=== PATIENT | male | born 1945 | race Caucasian/White ===

== ENCOUNTER → 2016-11-13 | Outpatient (CLI) | payer MEDICARE ==
[2016-11-13 09:48] LABS: Basophils # (A) 0.1 k/uL (0-0.2); Basophils % (A) 1 %; CH 34.6; Eosinophils # (A) 0.3 k/uL (0-0.7); Eosinophils % (A) 5 %; HCT 43.2 % (39.0-53.0); HDW 2.45; HGB 14.5 gm/dL (13.0-17.5); Luc # (Auto) 0.15; Luc % (Auto) 3; Lymphocytes # (A) 1.4 k/uL (1.0-4.8); Lymphocytes % (A) 24 %; MCH 34.2 pg (25.0-35.0); MCHC 33.5 g/dL (31.0-37.0); MCV 102.3 fL (80.0-100.0); Macrocytosis Slight; Mean Platelet Volume 6.7; Monocytes # (A) 0.5 k/uL (0-1.0); Monocytes % (A) 8 %; Neutrophils # (A) 3.3 k/uL (1.3-7.7); Neutrophils % (A) 59 %; RBC 4.22 m/uL (4.30-5.90); RDW 12.6 % (11.5-15.5); WBC 5.6 k/uL (3.8-10.6); WBC (Perox) 5.45
[2016-11-13 12:08] LABS: ALT 38 U/L (21-72); AST 40 U/L (17-59); Alkaline Phosphatase 128 U/L (38-126); Anion Gap 10 mmol/L; Blood Urea Nitrogen 18 mg/dL (9-20); Calcium 9.1 mg/dL (8.4-10.2); Carbon Dioxide 24 mmol/L (22-30); Chloride 109 mmol/L (98-107); Cholesterol 122 mg/dL (<200); Glucose 89 mg/dL (74-99); HDL Cholesterol 50 mg/dL (40-60); Non-African American GFR(MDRD) >60 (>60 ml/min/1.73 sqM); Potassium 4.5 mmol/L (3.5-5.1); Sodium 143 mmol/L (137-145); Total Bilirubin 1.2 mg/dL (0.2-1.3); Total Protein 6.5 g/dL (6.3-8.2); Triglycerides 80 mg/dL (<150)
== END ==
LOC: LABWHC1 07:26
PROVIDERS: ATTEND Internal Medicine
DX: E78.5 Hyperlipidemia, unspecified (principal); I25.10 Atherosclerotic heart disease of native coronary artery without angina pectoris; I51.4 Myocarditis, unspecified; E87.8 Other disorders of electrolyte and fluid balance, not elsewhere classified; E55.9 Vitamin D deficiency, unspecified; Z79.899 Other long term (current) drug therapy; Z12.5 Encounter for screening for malignant neoplasm of prostate
CPT/HCPCS: 84439; 80061; 80053; 83735; 84443; 85025; 82306; 36415; G0103

== ENCOUNTER → 2017-08-04 | Outpatient (CLI) | payer MEDICARE ==
--- NOTE | 2017-08-05 10:54 | ECHOF ---
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 This was a technically good study. The left ventricular size is normal. There is mild concentric left ventricular hypertrophy. Overa ll left ventricular systolic function is low-normal with, an EF between 50 - 55 %. The right ventricle is normal in size. Normal LA size by volume 22+/-6 ml/m2. The right atrial size is normal. The aortic valve is trileaflet, and appears structurally normal. No aortic stenosis or regurgitation. The mitral valve leaflets are mildly thickened. Mild mitral regurgitation is present. Mild tricuspid regurgitation present. There is no evidence of pulmonary hypertension. The right v entricular systolic pressure, as measured by Doppler, is 31.19mmHg. Trace/mild (physiologic) pulmonic regurgitation. The aortic root size is normal. There is no pericardial effusion. CONCLUSIONS -------- 1. Sinus rhythm. 2. This was a technically good study. 3. The left ventricular size is normal. 4. There is mild concentric left ventricular hypertrophy. 5. Overall left ventricular systolic function is low-normal with, an EF between 50 - 55 %. 6. Normal LA size by volume 22+/-6 ml/m2. 7. The aortic valve is trileaflet, and appears structurally normal. No aortic stenosis or regurgitati on. 8. The mitral valve leaflets are mildly thickened. 9. Mild mitral regurgitation is present. 10. Mild tricuspid regurgitation present. 11. There is no evidence of pulmonary hypertension. 12. Trace/mild (physiologic) pulmonic regurgitation. 13. The aortic root size is normal. 14. There is no pericardial effusion. ANIMAL ASSISTED THERAPIST: Eloisa Caldera RDCS
== END | disposition home or self-care (01) ==
LOC: RADECHMAIN 13:15
PROVIDERS: ATTEND Internal Medicine Cardiovascular Disease
DX: I08.1 Rheumatic disorders of both mitral and tricuspid valves (principal)
CPT/HCPCS: 93306

== ENCOUNTER → 2017-08-05 | Outpatient (CLI) | payer MEDICARE ==
[2017-08-05 08:33] LABS: Cholesterol 125 mg/dL (<200); HDL Cholesterol 45 mg/dL (40-60); LDL Cholesterol,Calculated 64 mg/dL (0-99); Triglycerides 79 mg/dL (<150)
== END | disposition home or self-care (01) ==
LOC: LABWHC1 07:43
PROVIDERS: ATTEND Internal Medicine
DX: B33.24 Viral cardiomyopathy (principal)
CPT/HCPCS: 36415; 80061

== ENCOUNTER → 2018-01-27 | Outpatient (CLI) | payer MEDICARE ==
[2018-01-27 08:53] LABS: Basophils % (A) 1 %; Eosinophils # (A) 0.4 k/uL (0-0.7); Eosinophils % (A) 9 %; HCT 41.2 % (39.0-53.0); HGB 13.9 gm/dL (13.0-17.5); Lymphocytes # (A) 1.3 k/uL (1.0-4.8); Lymphocytes % (A) 31 %; MCH 32.8 pg (25.0-35.0); MCHC 33.7 g/dL (31.0-37.0); MCV 97.1 fL (80.0-100.0); Mean Platelet Volume 6.7; Monocytes # (A) 0.3 k/uL (0-1.0); Monocytes % (A) 8 %; Neutrophils # (A) 1.9 k/uL (1.3-7.7); Neutrophils % (A) 47 %; Platelet Count 235 k/uL (150-450); RBC 4.24 m/uL (4.30-5.90); RDW 12.4 % (11.5-15.5)
[2018-01-27 12:55] LABS: Albumin 3.6 g/dL (3.5-5.0); Potassium 4.8 mmol/L (3.5-5.1); Total Bilirubin 0.9 mg/dL (0.2-1.3); Total Protein 6.4 g/dL (6.3-8.2)
[2018-01-27 13:11] LABS: T4, Free (Free Thyroxine) 1.07 ng/dL (0.78-2.19)
[2018-01-27 13:25] LABS: PSA Annual Screen 1.85 ng/mL (0.00-4.00)
== END | disposition home or self-care (01) ==
LOC: LABWHC1 07:13
PROVIDERS: ATTEND Internal Medicine
DX: Z00.00 Encounter for general adult medical examination without abnormal findings (principal); E78.5 Hyperlipidemia, unspecified; I25.10 Atherosclerotic heart disease of native coronary artery without angina pectoris; E05.90 Thyrotoxicosis, unspecified without thyrotoxic crisis or storm; E55.9 Vitamin D deficiency, unspecified; Z12.5 Encounter for screening for malignant neoplasm of prostate; Z79.899 Other long term (current) drug therapy
CPT/HCPCS: 84439; 80061; 80053; 84443; 85025; 82306; 36415; G0103

== ENCOUNTER → 2018-06-04 | Outpatient (CLI) | payer MEDICARE ==
[2018-06-04 16:01] LABS: T4, Free (Free Thyroxine) 1.2 ng/dL (0.80-1.80)
== END ==
LOC: LABWHC1 08:31
PROVIDERS: ATTEND Internal Medicine
DX: E03.9 Hypothyroidism, unspecified (principal)
CPT/HCPCS: 36415; 84439; 84443

== ENCOUNTER → 2018-10-27 | Outpatient (CLI) | payer MEDICARE ==
[2018-10-27 16:26] LABS: Basophils % (A) 1 %; Eosinophils # (A) 0.3 k/uL (0-0.7); Eosinophils % (A) 7 %; HCT 42.6 % (39.0-53.0); HGB 14.2 gm/dL (13.0-17.5); Lymphocytes # (A) 1.6 k/uL (1.0-4.8); Lymphocytes % (A) 32 %; MCH 33.7 pg (25.0-35.0); MCHC 33.4 g/dL (31.0-37.0); MCV 100.9 fL (80.0-100.0); Mean Platelet Volume 6.3; Monocytes # (A) 0.4 k/uL (0-1.0); Monocytes % (A) 8 %; Neutrophils # (A) 2.6 k/uL (1.3-7.7); Neutrophils % (A) 50 %; Platelet Count 233 k/uL (150-450); RBC 4.22 m/uL (4.30-5.90); RDW 12.7 % (11.5-15.5); WBC 5.2 k/uL (3.8-10.6)
[2018-10-28 00:05] LABS: Anion Gap 9.1 mmol/L (4.00-12.00); Calcium 8.9 mg/dL (8.7-10.3); Carbon Dioxide 23.9 mmol/L (21.6-31.8)
== END | disposition home or self-care (01) ==
LOC: LABWHC1 15:57
PROVIDERS: ATTEND Internal Medicine Cardiovascular Disease
DX: I25.110 Atherosclerotic heart disease of native coronary artery with unstable angina pectoris (principal)
CPT/HCPCS: 36415; 80048; 85025

== ENCOUNTER → 2019-02-08 | Outpatient (CLI) | payer MEDICARE ==
[2019-02-08 07:42] LABS: Basophils % (A) 1 %; Eosinophils # (A) 0.3 k/uL (0-0.7); Eosinophils % (A) 6 %; HCT 42.5 % (39.0-53.0); HGB 14.3 gm/dL (13.0-17.5); Lymphocytes # (A) 1.2 k/uL (1.0-4.8); Lymphocytes % (A) 28 %; MCH 33.8 pg (25.0-35.0); MCHC 33.7 g/dL (31.0-37.0); Mean Platelet Volume 6.3; Monocytes # (A) 0.4 k/uL (0-1.0); Monocytes % (A) 10 %; Neutrophils # (A) 2.1 k/uL (1.3-7.7); Neutrophils % (A) 52 %; Platelet Count 236 k/uL (150-450); RBC 4.25 m/uL (4.30-5.90); RDW 12.3 % (11.5-15.5); WBC 4.1 k/uL (3.8-10.6)
[2019-02-08 14:01] LABS: T4, Free (Free Thyroxine) 0.9 ng/dL (0.80-1.80)
[2019-02-08 14:05] LABS: African American GFR (CKD) 77.9 (60.0-200.0); Albumin 3.9 g/dL (3.80-4.90); Albumin/Globulin Ratio 2.05 (1.60-3.17); Anion Gap 7.6 mmol/L (4.00-12.00); BUN/Creat Ratio 14.55 Ratio (12.00-20.00); Calcium 8.5 mg/dL (8.7-10.3); Carbon Dioxide 24.4 mmol/L (21.6-31.8); Chol/HDL Ratio 2.29; Globulin 1.9 g/dL (1.6-3.3); LDL Cholesterol,Calculated 53.4 mg/dL (0.0-131.0); Non-African American GFR(CKD) 67.2 (60.0-200.0); Potassium 4.7 mmol/L (3.5-5.5); Total Bilirubin 0.6 mg/dL (0.2-1.2); Total Protein 5.8 g/dL (6.2-8.2); VLDL Calculation 13.6 mg/dL (5.00-40.00)
== END | disposition home or self-care (01) ==
LOC: LABWHC1 06:51
PROVIDERS: ATTEND Internal Medicine
DX: Z00.00 Encounter for general adult medical examination without abnormal findings (principal); I25.10 Atherosclerotic heart disease of native coronary artery without angina pectoris; E78.5 Hyperlipidemia, unspecified; E03.9 Hypothyroidism, unspecified; Z12.5 Encounter for screening for malignant neoplasm of prostate; Z79.899 Other long term (current) drug therapy
CPT/HCPCS: 84439; 80061; 80053; 85025; 36415; G0103

== ENCOUNTER → 2019-03-11 | Outpatient (CLI) | payer MEDICARE ==
[2019-03-11 11:31] LABS: Protein, Total 6.1 g/dL (6.2-8.2)
[2019-03-11 11:34] LABS: Albumin/Globulin Ratio 1.9 (1.60-3.17); Bilirubin, Conjugated 0.2 mg/dL (0.20-0.40); Bilirubin,Unconjugated 0.5 mg/dL; Globulin 2.1 g/dL (1.6-3.3); Total Bilirubin 0.7 mg/dL (0.2-1.2); Total Protein 6.1 g/dL (6.2-8.2)
[2019-03-11 11:39] LABS: Vitamin D 25 Hydroxy 36.4 ng/mL (30.0-100.0)
[2019-03-12 11:27] LABS: Albumin 3.56 g/dL (3.80-4.90)
== END | disposition home or self-care (01) ==
LOC: LABWHC1 07:17
PROVIDERS: ATTEND Internal Medicine
DX: E55.9 Vitamin D deficiency, unspecified (principal); R94.5 Abnormal results of liver function studies
CPT/HCPCS: 36415; 80076; 82306; 84165

== ENCOUNTER → 2019-04-02 | Outpatient (CLI) | payer MEDICARE ==
--- NOTE | 2019-04-02 10:58 | US ---
EXAMINATION TYPE: US abdomen limited DATE OF EXAM: 04/02/2019 COMPARISON: NONE CLINICAL HISTORY: R74.8 Elevated Liver Enzymes. EXAM MEASUREMENTS: Liver Length: 10.5 cm Gallbladder Wall: 0.2 cm CBD: 0.4 cm Right Kidney: 9.2 x 4.9 x 5.4 cm Pancreas: not visualized due to midline bowel gas Liver: cyst measures 2.1 x 1.7 x 1.9 cm Gallbladder: No stones seen Evidence for sonographic Palmer's sign: No CBD: wnl Right Kidney: No hydronephrosis or masses seen IMPRESSION: 1. Hepatic cyst appears simple and benign measuring 2.1 cm. Remainder of the hepatic echotexture appe ars homogeneous despite abnormal liver function tests. 2. No sonographic evidence of cholelithiasis nor acute cholecystitis.
== END | disposition home or self-care (01) ==
LOC: RADUSWWP 07:28
PROVIDERS: ATTEND Internal Medicine
DX: K76.89 Other specified diseases of liver (principal)
CPT/HCPCS: 76705

== ENCOUNTER → 2020-02-11 | Outpatient (CLI) | payer MEDICARE ==
[2020-02-11 09:12] LABS: Basophils % (A) 1 %; Eosinophils # (A) 0.3 k/uL (0-0.7); Eosinophils % (A) 7 %; HCT 44.8 % (39.0-53.0); HGB 14.7 gm/dL (13.0-17.5); Lymphocytes # (A) 1.2 k/uL (1.0-4.8); Lymphocytes % (A) 27 %; MCH 33.4 pg (25.0-35.0); MCHC 32.9 g/dL (31.0-37.0); MCV 101.6 fL (80.0-100.0); Monocytes # (A) 0.3 k/uL (0-1.0); Monocytes % (A) 7 %; Neutrophils # (A) 2.5 k/uL (1.3-7.7); Neutrophils % (A) 55 %; Platelet Count 232 k/uL (150-450); RBC 4.41 m/uL (4.30-5.90); RDW 12.5 % (11.5-15.5); WBC 4.6 k/uL (3.8-10.6)
[2020-02-11 17:30] LABS: African American GFR (CKD) 77.3 (60.0-200.0); Albumin/Globulin Ratio 1.74 (1.60-3.17); Anion Gap 6.4 mmol/L (4.00-12.00); BUN/Creat Ratio 17.27 Ratio (12.00-20.00); Calcium 9.3 mg/dL (8.7-10.3); Carbon Dioxide 27.6 mmol/L (21.6-31.8); Chol/HDL Ratio 2.65; Globulin 2.3 g/dL (1.6-3.3); LDL Cholesterol,Calculated 57.6 mg/dL (0.0-131.0); Non-African American GFR(CKD) 66.7 (60.0-200.0); Potassium 4.5 mmol/L (3.5-5.5); Total Bilirubin 0.9 mg/dL (0.2-1.2); Total Protein 6.3 g/dL (6.2-8.2); VLDL Calculation 18.4 mg/dL (5.00-40.00)
[2020-02-11 17:38] LABS: T4, Free (Free Thyroxine) 1.1 ng/dL (0.80-1.80)
== END | disposition home or self-care (01) ==
LOC: LABWHC1 07:19
PROVIDERS: ATTEND Internal Medicine
DX: Z00.00 Encounter for general adult medical examination without abnormal findings (principal); E55.9 Vitamin D deficiency, unspecified; E78.5 Hyperlipidemia, unspecified; I25.10 Atherosclerotic heart disease of native coronary artery without angina pectoris; Z12.5 Encounter for screening for malignant neoplasm of prostate; Z79.899 Other long term (current) drug therapy
CPT/HCPCS: 84439; 80061; 80053; 82550; 84443; 85025; 82306; 36415; G0103

== ENCOUNTER → 2021-02-14 | Outpatient (CLI) | payer MEDICARE ==
[2021-02-14 12:04] LABS: Basophils # (A) 0.04 X 10*3/uL (0.00-0.10); Basophils % (A) 0.9 %; Eosinophils # (A) 0.31 X 10*3/uL (0.04-0.35); Eosinophils % (A) 7.3 %; HCT 40.7 % (39.6-50.0); HGB 13.9 g/dL (13.0-17.0); Lymphocytes # (A) 1.17 X 10*3/uL (0.90-5.00); Lymphocytes % (A) 27.5 %; MCH 34.3 pg (27.0-32.0); MCHC 34.2 g/dL (32.0-37.0); MCV 100.5 fL (80.0-97.0); Mean Platelet Volume 10.2 fL (9.5-12.2); Monocytes # (A) 0.42 X 10*3/uL (0.20-1.00); Monocytes % (A) 9.9 %; Neutrophils % (A) 54.2 %; Platelet Count 218 X 10*3/uL (140-440); RBC 4.05 X 10*6/uL (4.40-5.60); RDW 12.4 % (11.5-14.5); WBC 4.25 X 10*3/uL (4.50-10.00)
[2021-02-14 13:56] LABS: African American GFR (CKD) 69.1 (60.0-200.0); Albumin 3.9 g/dL (3.80-4.90); Albumin/Globulin Ratio 1.63 (1.60-3.17); Anion Gap 5.5 mmol/L (4.00-12.00); BUN/Creat Ratio 16.67 Ratio (12.00-20.00); Calcium 8.9 mg/dL (8.7-10.3); Carbon Dioxide 25.5 mmol/L (21.6-31.8); Chol/HDL Ratio 2.66; Globulin 2.4 g/dL (1.6-3.3); LDL Cholesterol,Calculated 57.6 mg/dL (0.0-131.0); Non-African American GFR(CKD) 59.6 (60.0-200.0); Potassium 4.4 mmol/L (3.5-5.5); Total Protein 6.3 g/dL (6.2-8.2); VLDL Calculation 10.4 mg/dL (5.00-40.00)
[2021-02-14 14:06] LABS: T4, Free (Free Thyroxine) 1.2 ng/dL (0.80-1.80)
[2021-02-14 14:08] LABS: PSA Annual Screen 1.9 ng/mL (0.0-4.0)
[2021-02-14 18:24] LABS: Hepatitis B Surface AB- Quant <3.5 mIU/mL; Hepatitis B Surface Antibody Non-Reactive (Non-Reactive); Hepatitis B Surface Antigen Non-Reactive (Non-Reactive); Hepatitis C IgG Antibody Non-Reactive (Non-Reactive)
== END | disposition home or self-care (01) ==
LOC: LABWHC1 07:17
PROVIDERS: ATTEND Internal Medicine
DX: Z12.5 Encounter for screening for malignant neoplasm of prostate (principal); E55.9 Vitamin D deficiency, unspecified; E03.9 Hypothyroidism, unspecified; E78.5 Hyperlipidemia, unspecified; R94.5 Abnormal results of liver function studies; I25.10 Atherosclerotic heart disease of native coronary artery without angina pectoris; Z79.899 Other long term (current) drug therapy
CPT/HCPCS: 86803; 84439; 80061; 80053; 82550; 84443; 85025; 86706; 87340; 82306; 86704; 36415; G0103

== ENCOUNTER → 2022-04-15 | Outpatient (CLI) | payer MEDICARE ==
[2022-04-15 11:48] LABS: T4, Free (Free Thyroxine) 1.35 ng/dL (0.800-1.800)
== END | disposition home or self-care (01) ==
LOC: LABWHC1 07:22
PROVIDERS: ATTEND Internal Medicine
DX: E03.9 Hypothyroidism, unspecified (principal)
CPT/HCPCS: 36415; 84439; 84443

== ENCOUNTER → 2023-02-20 | Outpatient (CLI) | payer MEDICARE ==
[2023-02-20 13:18] LABS: Basophils # (A) 0.06 X 10*3/uL (0.00-0.10); Basophils % (A) 1.1 %; Eosinophils % (A) 11.3 %; HCT 44.1 % (39.6-50.0); HGB 15.1 d/dL (13.0-17.0); Lymphocytes # (A) 1.51 X 10*3/uL (0.90-5.00); Lymphocytes % (A) 28.3 %; MCH 34.6 pg (27.0-32.0); MCHC 34.2 d/dL (32.0-37.0); MCV 101.1 FL (80.0-97.0); Mean Platelet Volume 9.9 FL (9.5-12.2); Monocytes # (A) 0.61 X 10*3/uL (0.20-1.00); Monocytes % (A) 11.4 %; NRBC Per 100 WBC 0 X 10*3/uL (0.00-0.01); Neutrophils # (A) 2.54 X 10*3/uL (1.80-7.70); Neutrophils % (A) 47.7 %; Platelet Count 220 X 10*3/uL (140-440); RBC 4.36 X 10*6/uL (4.40-5.60); WBC 5.33 X 10*3/uL (4.50-10.00)
[2023-02-20 14:00] LABS: Chol/HDL Ratio 2.45 Ratio; LDL Cholesterol,Calculated 57.9 mg/dL (0.0-131.0); VLDL Calculation 14.26 mg/dL (5.00-40.00)
[2023-02-20 14:01] LABS: ALT 27 U/L (10-49); AST 35 U/L (14-35); Albumin 4.3 d/dL (3.8-4.9); Albumin/Globulin Ratio 1.87 Ratio (1.60-3.17); Alkaline Phosphatase 145 U/L (41-126); BUN/Creat Ratio 18.33 Ratio (12.00-20.00); Calcium 9.4 mg/dL (8.7-10.3); Carbon Dioxide 25.9 mmol/L (21.6-31.8); Chloride 105 mmol/L (96-109); Globulin 2.3 d/dL (1.6-3.3); Glucose 98 mg/dL (70-110); Potassium 4.6 mmol/L (3.5-5.5); Sodium 140 mmol/L (135-145); T4, Free (Free Thyroxine) 1.33 ng/dL (0.80-1.80); Total Bilirubin 0.5 mg/dL (0.3-1.2); Total Protein 6.6 d/dL (6.2-8.2)
== END | disposition home or self-care (01) ==
LOC: LABWHC1 07:14
PROVIDERS: ATTEND Internal Medicine
DX: Z12.5 Encounter for screening for malignant neoplasm of prostate (principal); E78.5 Hyperlipidemia, unspecified; E55.9 Vitamin D deficiency, unspecified; Z79.899 Other long term (current) drug therapy; I25.10 Atherosclerotic heart disease of native coronary artery without angina pectoris; E03.9 Hypothyroidism, unspecified
CPT/HCPCS: 84439; 80061; 80053; 84443; 85025; 82306; 36415; G0103

== ENCOUNTER → 2024-03-01 | Outpatient (CLI) | payer MEDICARE ==
[2024-03-01 15:22] LABS: HCT 41.2 % (39.6-50.0); MCH 34.7 pg (27.0-32.0); MCV 102.2 FL (80.0-97.0); Mean Platelet Volume 10.1 FL (9.5-12.2); NRBC Per 100 WBC 0 X 10*3/uL (0.00-0.01); Platelet Count 220 X 10*3/uL (140-440); RBC 4.03 X 10*6/uL (4.40-5.60); RDW 12.3 % (11.5-14.5); WBC 4.02 X 10*3/uL (4.50-10.00)
[2024-03-01 16:00] LABS: ALT 26 U/L (10-49); AST 36 U/L (14-35); Albumin 3.9 g/dL (3.8-4.9); Albumin/Globulin Ratio 1.62 Ratio (1.60-3.17); Alkaline Phosphatase 157 U/L (41-126); BUN/Creat Ratio 15.38 Ratio (12.00-20.00); Calcium 9.1 mg/dL (8.7-10.3); Carbon Dioxide 26.1 mmol/L (21.6-31.8); Chloride 107 mmol/L (96-109); Chol/HDL Ratio 2.79 Ratio; Globulin 2.4 g/dL (1.6-3.3); Glucose 93 mg/dL (70-110); LDL Cholesterol,Calculated 68.6 mg/dL (0.0-131.0); Potassium 4.6 mmol/L (3.5-5.5); Prostate Specific Antigen 2.92 ng/mL (0.000-6.500); Sodium 141 mmol/L (135-145); Total Bilirubin 0.5 mg/dL (0.3-1.2); Total Protein 6.3 g/dL (6.2-8.2)
== END ==
LOC: LABWHC1 07:12
PROVIDERS: ATTEND Internal Medicine
DX: Z00.00 Encounter for general adult medical examination without abnormal findings
CPT/HCPCS: 36415; 80053; 80061; 82306; 84153; 84439; 84443; 85027

== ENCOUNTER → 2024-03-08 | Outpatient (CLI) | payer MEDICARE ==
--- NOTE | 2024-03-08 11:59 | US ---
EXAMINATION TYPE: US abdomen limited DATE OF EXAM: 03/08/2024 COMPARISON: NONE CLINICAL INDICATION: Male, 78 years old with history of R74.8 ABNORMAL LEVELS OF OTHER SERUM ENZYMES; Abnormal labs. History of liver cyst. TECHNIQUE: Multiple sonographic images of the right upper quadrant are obtained. FINDINGS: EXAM MEASUREMENTS: Liver Length: 13.9 cm Gallbladder Wall: 0.2 cm CBD: 0.5 cm Right Kidney: 9.7 x 5.3 x 5.7 cm Pancreas: Obscured by bowel gas Liver: Right lobe simple appearing cyst = 2.6 x 2.9 x 2.6 cm Gallbladder: No stones or wall thickening Evidence for sonographic Palmer's sign: neg CBD: wnl Right Kidney: No hydronephrosis or masses seen IMPRESSION: 1. Unremarkable right upper quadrant ultrasound. 2. Simple appearing cyst right lobe liver [facility], , 03/08/2024 11:57 AM
== END | disposition home or self-care (01) ==
LOC: RADUSWWP 07:54
PROVIDERS: ATTEND Internal Medicine
DX: R74.8 Abnormal levels of other serum enzymes
CPT/HCPCS: 76705

== ENCOUNTER → 2024-03-08 | Outpatient (CLI) | payer MEDICARE | END | disposition home or self-care (01) | LOC: LABWHC1 08:19 | PROVIDERS: ATTEND Internal Medicine | DX: R74.8 Abnormal levels of other serum enzymes (principal) | CPT/HCPCS: 36415 ==

== ENCOUNTER → 2024-07-06 | Outpatient (CLI) | payer MEDICARE ==
--- NOTE | 2024-07-06 12:08 | XR ---
EXAMINATION TYPE: XR chest 2V DATE OF EXAM: 07/06/2024 11:55 AM COMPARISON: None CLINICAL INDICATION: Male, 78 years old with history of R05.1 ACUTE COUGH; [facility] TECHNIQUE: XR chest 2V Frontal and lateral views of the chest. FINDINGS: Lungs/Pleura: There is no evidence of pleural effusion, focal consolidation, or pneumothorax. Pulmonary vascularity: Unremarkable. Heart/mediastinum: Cardiomediastinal silhouette is unremarkable. Musculoskeletal: No acute osseous pathology. IMPRESSION: No acute cardiopulmonary disease/process. [facility], , 07/06/2024 12:06 PM
== END | disposition home or self-care (01) ==
LOC: RADXRMAIN 11:39
PROVIDERS: ATTEND Internal Medicine
DX: R05.1 Acute cough (principal)
CPT/HCPCS: 71046

== ENCOUNTER → 2024-08-13 | Outpatient (CLI) | payer MEDICARE | END | disposition home or self-care (01) | LOC: LABWHC1 14:42 | PROVIDERS: ATTEND Internal Medicine Interventional Cardiology | DX: I42.8 Other cardiomyopathies (principal); R06.09 Other forms of dyspnea | CPT/HCPCS: 36415; 83880 ==

== ENCOUNTER → 2024-12-06 | Outpatient (CLI) | payer MEDICARE ==
--- NOTE | 2024-12-06 08:16 | US ---
EXAMINATION TYPE: US liver DATE OF EXAM: 12/06/2024 COMPARISON: CLINICAL INDICATION: Male, 79 years old with history of R74.8 ABNORMAL LEVELS OF OTHER SERUM ENZYMES; Abnormal labs. Hx liver cyst. TECHNIQUE: Grayscale and color Doppler imaging of the right upper quadrant was performed. FINDINGS: EXAM MEASUREMENTS: Liver Length: 13.8 cm Gallbladder Wall: 0.2 cm CBD: 0.5 cm Right Kidney: 9.4 x 5.0 x 5.7 cm Pancreas: Echogenic in appearance. Liver: Right lobe simple appearing cyst = 2.4 x 2.4 x 2.3 cm. Gallbladder: No stones or wall thickening seen Evidence for sonographic Palmer's sign: neg CBD: wnl Right Kidney: No hydronephrosis or masses seen IMPRESSION: 1. Hepatic cyst. [facility], , 12/06/2024 8:14 AM
== END | disposition home or self-care (01) ==
LOC: RADUSWWP 06:49
PROVIDERS: ATTEND Internal Medicine
DX: K76.89 Other specified diseases of liver (principal); R74.8 Abnormal levels of other serum enzymes
CPT/HCPCS: 76705